=== PATIENT | female | born 1950 ===

== ENCOUNTER 2018-04-12 07:30 | Outpatient (CLI) | payer OTHER | END 2018-04-12 07:45 | disposition home or self-care (01) | LOC: OFIC 805 07:30 | DX: H90.6 Mixed conductive and sensorineural hearing loss, bilateral (principal); H61.23 Impacted cerumen, bilateral; H80.83 Other otosclerosis, bilateral ==

== ENCOUNTER 2018-04-19 07:25 | Outpatient (CLI) | payer OTHER ==
[~2018-04-19] VITALS: Ht 152.4 cm; Wt 74.8 kg
== END 2018-04-19 07:40 | disposition home or self-care (01) ==
LOC: OFIC 805 07:25
DX: H80.83 Other otosclerosis, bilateral (principal)

== ENCOUNTER 2018-04-26 07:31 | Outpatient (CLI) | payer OTHER ==
[~2018-04-26] VITALS: Ht 152.4 cm; Wt 74.8 kg
== END 2018-04-26 07:45 | disposition home or self-care (01) ==
LOC: OFIC 805 07:31
DX: H90.6 Mixed conductive and sensorineural hearing loss, bilateral (principal); H80.83 Other otosclerosis, bilateral

== ENCOUNTER 2018-05-10 05:45 | Day surgery (SDC) | payer OTHER ==
[~2018-05-10 05:45] MED LIST: SYNTHROID75 MCG
== END 2018-05-10 10:50 | disposition home or self-care (01) ==
LOC: CIR.AMB 05:45
DX: H80.82 Other otosclerosis, left ear (principal); H90.12 Conductive hearing loss, unilateral, left ear, with unrestricted hearing on the contralateral side; H80.81 Other otosclerosis, right ear; H90.72 Mixed conductive and sensorineural hearing loss, unilateral, left ear, with unrestricted hearing on the contralateral side

== ENCOUNTER 2018-05-17 07:37 | Outpatient (CLI) | payer OTHER ==
[~2018-05-17] VITALS: Ht 152.4 cm; Wt 75.7 kg
== END 2018-05-17 08:00 | disposition home or self-care (01) ==
LOC: OFIC 805 07:37
DX: H90.6 Mixed conductive and sensorineural hearing loss, bilateral (principal); H80.83 Other otosclerosis, bilateral

== ENCOUNTER 2018-05-31 07:24 | Outpatient (CLI) | payer OTHER ==
[~2018-05-31] VITALS: Ht 152.4 cm; Wt 76.7 kg
== END 2018-05-31 07:45 | disposition home or self-care (01) ==
LOC: OFIC 805 07:24
DX: H90.6 Mixed conductive and sensorineural hearing loss, bilateral (principal); H80.83 Other otosclerosis, bilateral